=== PATIENT | male | born 1980 | race American Indian/Alaskan Native ===

== ENCOUNTER 2020-04-16 15:04 | Emergency (ER) | payer SELFPAY ==
[2020-04-16 15:11] VITALS: BP 148/89
--- NOTE | 2020-04-16 15:26 | Emergency Department Report ---
ED Headache HPI - General Chief Complaint: Headache Stated Complaint: HEAD/FACE PAIN Time Seen by Provider: 04/16/20 15:13 - History of Present Illness Initial Comments: This is a 39-year-old male who presents the ED complaining of right-sided temporal headache and side pain times yesterday. Patient symptoms symptoms began yesterday when he woke up. Patient states pain is localized to his right facial and temporal region. Patient describes pain as throbbing in nature. Patient denies fever/chills/nausea vomiting/blurry vision/dizziness or any trauma or injury. Timing/Duration: 24 hours Quality: achy, throbbing Head Injury Location: frontal, temporal (right) Recent Head Trauma: no recent headache/trauma Associated Symptoms: denies: facial pain, loss of consciousness, nausea/vomiting, nasal congestion, sinus infection Allergies/Adverse Reactions: Allergies No Known Allergies Allergy (Unverified 04/16/20 15:06) Home Medications: Ambulatory Orders Amoxicillin [Amoxicillin TAB] 875 mg PO BID #14 tablet 04/16/20 Ibuprofen [Motrin] 800 mg PO Q8HR #30 tablet 04/16/20 ED Review of Systems ROS: Stated complaint: HEAD/FACE PAIN Other details as noted in HPI Comment: All other systems reviewed and negative ED Past Medical Hx - Past Medical History Previous Medical History?: Yes Hx Diabetes: Yes Additional medical history: Sarcodosis - Surgical History Past Surgical History?: No - Social History Smoking Status: Former Smoker Substance Use Type: Alcohol, Marijuana - Medications Home Medications: Home Medications Medication Instructions Recorded Confirmed Last Taken Type Amoxicillin [Amoxicillin TAB] 875 mg PO BID #14 tablet 04/16/20 Unknown Rx Ibuprofen [Motrin] 800 mg PO Q8HR #30 tablet 04/16/20 Unknown Rx ED Physical Exam - General Limitations: No Limitations General appearance: alert, in no apparent distress - Head Head exam: Present: atraumatic, normocephalic - Eye Eye exam: Present: normal appearance, PERRL Pupils: Present: normal accommodation - ENT ENT exam: Present: mucous membranes moist - Expanded ENT Exam Expanded Teeth exam: Present: dental caries, dental tenderness # 1 - Fractured, Dental Tenderness Throat exam: Positive: normal inspection - Neck Neck exam: Present: normal inspection - Respiratory Respiratory exam: Present: normal lung sounds bilaterally. Absent: respiratory distress - Cardiovascular Cardiovascular Exam: Present: regular rate, normal rhythm. Absent: systolic murmur, diastolic murmur, rubs, gallop - GI/Abdominal GI/Abdominal exam: Present: soft, normal bowel sounds - Rectal Rectal exam: Present: deferred - Extremities Exam Extremities exam: Present: normal inspection - Back Exam Back exam: Present: normal inspection - Neurological Exam Neurological exam: Present: alert, oriented X3 - Psychiatric Psychiatric exam: Present: normal affect, normal mood - Skin Skin exam: Present: warm, dry, intact, normal color. Absent: rash ED Course Vital Signs 04/16/20 15:09 Temperature 98.8 F Pulse Rate 66 Respiratory 20 Rate Blood Pressure 148/89 O2 Sat by Pulse 99 Oximetry ED Medical Decision Making - Medical Decision Making 39-year-old male who presents with l [id number] Facial pain and headache secondary to odontogenic caries ED course: Odontogenic infection causing temporal sided headache. Based upon history and physical examination, pain is a result of an infection of tooth number 4 and that the pain Pt feels on the right side of his face and towards the head referr ed pain from this infectious process. Pt has no evidence of acute impending airway compromise. At this point, patient will be discharged home on some antibiotics and pain trial, she will do well with an outpatient course of antibiotics. Follow up with the Dental Clinic as referred Vital signs are normal patient is in no acute distress. Pt had an effect uneventful ED stay Critical care attestation.: If time is entered above; I have spent that time in minutes in the direct care of this critically ill patient, excluding procedure time. ED Disposition Clinical Impression: Pain, dental, Dental headache Disposition: - TO HOME OR SELFCARE Is pt being admited?: No Does the pt Need Aspirin: No Condition: Stable Instructions: Migraine Headache, [id number], Tension Headache, Adult Additional Instructions: Make sure to follow up with the primary care physician as discussed. Take all your medications as you've been prescribed. If you have any worsening symptoms or develop new symptoms please return to ED immediately. Prescriptions: Amoxicillin [Amoxicillin TAB] 875 mg PO BID #14 tablet Ibuprofen [Motrin] 800 mg PO Q8HR #30 tablet Referrals: [facility] [Outside] - 3-5 Days [facility] [place]] - 3-5 Days [facility] [Outside] - 3-5 Days Forms: Accompanied Note, Work/School Release Form(ED) Time of Disposition: 16:18
== END 2020-04-16 17:14 | disposition home or self-care (01) ==
LOC: ED 15:04
DX: K08.89 Other specified disorders of teeth and supporting structures (principal); R51.9 Headache, unspecified; E11.9 Type 2 diabetes mellitus without complications; F12.90 Cannabis use, unspecified, uncomplicated; Z87.891 Personal history of nicotine dependence; Z79.899 Other long term (current) drug therapy
CPT/HCPCS: 99282

== ENCOUNTER 2021-07-13 10:48 | Emergency (ER) | payer MEDICAID ==
[2021-07-13] MEDS ORDERED: HYDROcodone/ACETAMINOPHEN 5-325 MG TAB PO STA (15:37)
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
--- NOTE | 2021-07-13 16:06 | Cat Scan Report ---
. CT HEAD WITHOUT CONTRAST INDICATION / CLINICAL INFORMATION: headache. TECHNIQUE: Axial imaging performed from the skull apex through the skull base without the use of cont rast. Sagittal and coronal reformatted images. All CT scans at this location are performed using CT dose reduction for ALARA by means of automated exposure control. COMPARISON: None available. FINDINGS: CEREBRAL PARENCHYMA: No significant abnormality. No acute territorial infarct. HEMORRHAGE: None. EXTRA-AXIAL SPACES: Normal in size and morphology for the patient's age. VENTRICULAR SYSTEM: Normal in size and morphology for the patient's age. MIDLINE SHIFT OR HERNIATION: None. CEREBELLUM / BRAINSTEM: No significant abnormality. CALVARIUM: No significant abnormality. ORBITS: Normal as visualized. PARANASAL SINUSES / MASTOID AIR CELLS: Normal as visualized. SOFT TISSUES of HEAD: No significant abnormality. ADDITIONAL FINDINGS: None. IMPRESSION: No acute intracranial abnormality. Normal CT brain. Signer Name: Moe Stevens Jr, MD Signed: 07/13/2021 4:01 PM Workstation Name: [id number]
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
[2021-07-13 18:54] VITALS: BP 119/78
== END 2021-07-13 18:55 | disposition home or self-care (01) ==
LOC: ED 10:48
DX: S60.229A Contusion of unspecified hand, initial encounter (principal); R51.9 Headache, unspecified; E11.9 Type 2 diabetes mellitus without complications; Z87.891 Personal history of nicotine dependence; Z79.899 Other long term (current) drug therapy; V89.2XXA Person injured in unspecified motor-vehicle accident, traffic, initial encounter; Y93.89 Activity, other specified; Y92.89 Other specified places as the place of occurrence of the external cause; Y99.8 Other external cause status
CPT/HCPCS: 70450; 99284